=== PATIENT | female | born 1945 | race Caucasian/White ===

== ENCOUNTER 2018-04-12 11:47 | Outpatient (CLI) ==
--- NOTE | 2018-04-12 14:05 | DI ---
EXAM: PA and lateral views of the chest HISTORY: Cough. COMPARISON: Chest x-ray 03/13/2018 and multiple priors FINDINGS: The cardiomediastinal silhouette is normal. There is no pneumothorax or pleural effusion. There is no consolidation, nodule or mass. 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
== END 2018-04-12 11:48 | disposition home or self-care (01) ==
LOC: RAD 11:47
PROVIDERS: ATTEND Physician Assistant
DX: R05 Cough (principal)